=== PATIENT | female | born 1995 | race American Indian/Alaskan Native ===

== ENCOUNTER 2018-03-01 11:58 | Emergency (ER) | payer BC, OTHER ==
[2018-03-01 12:06] VITALS: RESP 18; O2SAT 100; BMI 41.1
[2018-03-01] MEDS ORDERED: Lidocaine 5% Patch TD SCH (12:45)
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
[2018-03-01 14:29] VITALS: BP 150/87; PULSE 81; TEMP 98.3
== END 2018-03-01 14:30 | disposition home or self-care (01) ==
LOC: ED 11:58
DX: M54.5 Low back pain (principal)
CPT/HCPCS: 96372; 99283; J1885